=== PATIENT | male | born 1985 | race Caucasian/White ===

== ENCOUNTER 2023-03-08 14:07 | Emergency (ER) | payer OTHER, SELFPAY ==
[2023-03-08 14:12] VITALS: BP 146/83; PULSE 84; RESP 20; TEMP 36.5; O2SAT 100
--- NOTE | 2023-03-08 14:20 | ED.EYEPROB ---
HPI - Eye Problem General Chief complaint: Eye Problems Stated complaint: eyes Time Seen by Provider: 03/08/23 14:10 Source: patient and RN notes reviewed History of Present Illness HPI Narrative: Patient is a 38-year-old male who presents to urgent care with complaints of bilateral eye irritation/redness/drainage. Patient states that it started over the weekend with irritation in the right eye, then moved to the left eye. Patient states that he took some Zyrtec this morning has been using his daughter's Polytrim drops. Denies any trauma or injury to the eye. 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 Patient states he does were glasses. No other acute complaints. No acute distress noted. Patient aware of the plan of care. Some parts of this dictation were generated by voice recognition software and may contain typographical and/or grammatical inaccuracies. Related Data Home Medications Medication Instructions Recorded Confirmed escitalopram oxalate 10 mg tablet 10 mg PO DAILY 03/08/23 03/08/23 losartan 25 mg tablet 25 mg PO DIRECTED 03/08/23 03/08/23 metformin 500 mg tablet,extended 500 mg PO DIRECTED 03/08/23 03/08/23 release 24 hr pantoprazole 40 mg tablet,delayed 40 mg PO DIRECTED 03/08/23 03/08/23 release rosuvastatin 5 mg tablet 5 mg PO DIRECTED 03/08/23 03/08/23 Allergies Allergy/AdvReac Type Severity Reaction Status Date / Time No Known Allergies Allergy Verified 03/08/23 14:18 Review of Systems Review of Systems: CONSTITUTIONAL: Denies fever, chills, or sweats. EYES: Reports of irritation and redness to bilateral ENT: Denies rhinorrhea, congestion, sore throat, or otalgia. CARDIOVASCULAR: Denies chest pain, palpitations, or edema. RESPIRATORY: Denies cough or dyspnea. GASTROINTESTINAL: Denies abdominal pain, nausea, vomiting, or diarrhea. GENITOURINARY: Denies dysuria or hematuria. SKIN: Denies rash or itching. MUSCULOSKELETAL: Denies back pain, joint pain, or myalgia. NEUROLOGIC: Denies headache, numbness, or weakness. All other systems reviewed are negative, except as documented in HPI. [facility] Comments At the time of my signature, I reviewed and agree with the nursing past medical, surgical, social, and family history. There is no relevant family history pertinent to the patient complaint. Exam Narrative: GENERAL: This is a well-nourished, well-developed patient, in no apparent distress. HEAD: normocephalic, atraumatic. EYES: PERRL. Mild erythema to bilateral conjunctivitis/sclera with clear drainage. Vision is grossly intact. EARS: External ears normal NOSE: External nose normal with no obvious nasal discharge, nares without redness, no rhinorrhea. THROAT: Mucous membranes moist NECK: Neck supple, SKIN: warm, intact with no suspicious lesions or rash, good texture and turgor. NEURO: awake, alert, and oriented to person, place and time. There were no obvious focal neurologic abnormalities. EXTREMITIES: No clubbing, cyanosis, or edema. Course Course Level of Care: Express Care Visit Vital Signs Vital signs: Vital Signs Temperature 97.7 F 03/08/23 14:12 Pulse Rate 84 03/08/23 14:12 Respiratory Rate 20 03/08/23 14:12 Blood Pressure 146/83 H 03/08/23 14:12 Pulse Oximetry 100 03/08/23 14:12 Oxygen Delivery Room Air 03/08/23 14:12 Temperature 97.7 F 03/08/23 14:21 Pulse Rate 84 03/08/23 14:21 Respiratory Rate 20 03/08/23 14:21 Blood Pressure 146/83 H 03/08/23 14:21 Pulse Oximetry 100 03/08/23 14:21 Oxygen Delivery Room Air 03/08/23 14:21 Reviewed- Patient is informed that they may have pre-hypertension or hypertension based on a blood pressure reading in the department. I recommend the patient call the primary care provider listed on their discharge instructions or a physician of their choice this week to arrange follow-up for further evaluation of possible pre-hypertension or hypertension. MDM - Eye Problem MDM Narrativ
[2023-03-08 14:21] VITALS: BP 146/83; PULSE 84; RESP 20; TEMP 36.5; O2SAT 100
== END 2023-03-08 14:37 | disposition home or self-care (01) ==
PROVIDERS: Emergency Provider Nurse Practitioner Family; PCP Internal Medicine
DX: H10.9 Unspecified conjunctivitis (principal); E78.00 Pure hypercholesterolemia, unspecified; I10 Essential (primary) hypertension; K21.9 Gastro-esophageal reflux disease without esophagitis
CPT/HCPCS: 99213; G0463